=== PATIENT | female | born 1965 | race Caucasian/White ===

== ENCOUNTER 2016-08-18 03:08 | Inpatient (IN) | payer OTHER ==
[~2016-08-18] VITALS: Ht 157.5 cm; Wt 67.1 kg
[~2016-08-18 03:08] MED LIST: FLUOXETINE HCL10 M2 PO
--- NOTE | 2016-08-18 08:54 | Admission Core Measures ---
Admission Lab Results I reviewed the following labs: Laboratory Tests 08/18 621 Urines Urine Test NEGATIVE Admission Meds I reviewed the following Meds: Current Medications Sig/Esther Start time Last Medication Dose Stop Time Status Admin Cefazolin Sodium 2,000 MG ONCE 08/18 0000 NR (Kefzol-Ancef Inj) 08/18 2358 Oxycodone HCl 10 MG ONCE 08/18 0000 NR (Roxicodone) 08/18 2358 Acute Coronary Syndrome Inclusion Criteria ACS Diagnosis No Inpatient Core Measures LDL Reminder: If No, please order W/I first 24hr of stay Congestive Heart Failure Inclusion Criteria CHF Diagnosis No Cerebrovascular accident Inclusion Criteria CVA/TIA Diagnosis No Inpatient Core Measures Bedside Swallow Eval Reminder: If BSE failed, place ST order Antithrombotic Reminder: Order Antithrombotic Medication by end of day 2 Antithrombotic Reminder: Document Reason Antithrombotic Not ordered by end of day 2 AFIB/Flutter Reminder: If Present, add to problem list AFIB/Flutter Reminder: Order Anticoag Medication for pts with AFIB/Flutter Atherosclerosis Reminder: If Present, add to problem list LDL Reminder: If No, please order W/I first 24hr of stay PT Order Reminder: If No, please order Venous thromboembolism Inpatient Core Measures VTE Risk Factors: Age > 40, Surgery No [facility] VTE prophylaxis d/t No contraindications No VTE Pharm Prophylaxis d/t No contraindications Inclusion Criteria - Per Current guidelines, there needs to be overlap - treatment for the first 5 days of Warfarin therapy. - Parenteral Anticoagulation (IV or SC) needs to be - given along with Warfarin therapy. VTE Diagnosis No VTE Type NONE VTE Confirmed by (Test) NONE Problem List As ranked by this Provider includes Assessment & Plan 1. S/P total hip arthroplasty HOME MEDS Home Med List Fluoxetine HCl 10 MG CAPSULE 1 CAP PO DAILY PMS SYNDROME (Reported)
[2016-08-18] MEDS ORDERED: DILAUDID2 M1 PO (09:10)
[2016-08-18] MEDS ORDERED: ASPIRIN325 M2 PO (09:10)
[2016-08-18] MEDS ORDERED: MIRALAX17 G1 PO (09:10)
[2016-08-18] MEDS ORDERED: MS CONTIN15 M2 PO (09:10)
[2016-08-18] MEDS ORDERED: COLACE100 M1 PO (09:10)
--- NOTE | 2016-08-18 09:13 | Patient Discharge Instructions ---
Discharge Instructions General Discharge Information You were seen/treated for: Right hip degenerative joint disease You had these procedures: Right total hip arthroplasty Watch for these problems: Significantly increased pain, difficulty ambulating, or temperature over 101 Increased redness or drainage from incision No bath, but you may shower: Yes Other wound care: Daily dry dressing change Special Instructions: See printed information booklet Diet Continue normal diet: Yes Activity Activity Self Limited: Yes Other activity limits: Ambulate with walker as instructed by physical therapy No driving or operating heavy machinery while until finished taking pain medications and okay with your surgeon Acute Coronary Syndrome Inclusion Criteria At DC or during hospital stay patient has or had the following: ACS DIAGNOSIS No Discharge Core Measures Meds if any: Prescribed or Continued at Discharge Meds if any: NOT Prescribed or Continued at Discharge Congestive Heart Failure Inclusion Criteria At DC or during hospital stay patient has or had the following: CHF DIAGNOSIS No Discharge Core Measures Meds if any: Prescribed or Continued at Discharge Meds if any: NOT Prescribed or Continued at Discharge Cerebrovascular accident Inclusion Criteria At DC or during hospital stay patient has or had the following: CVA/TIA Diagnosis No Discharge Core Measures Meds if any: Prescribed or Continued at Discharge Meds if any: NOT Prescribed or Continued at Discharge Venous thromboembolism Inclusion Criteria VTE Diagnosis No VTE Type NONE VTE Confirmed by (Test) NONE Discharge Core Measures - Per Current guidelines, there needs to be overlap - treatment for the first 5 days of Warfarin therapy. - If discharged on Warfarin prior to 5 days of - overlap therapy, the patient will need to be - assessed for post discharge needs including - *Post discharge parental anticoagulation - *Warfarin and/or parental anticoagulation education - *Follow up date to check INR post discharge At least 5 days overlap therapy as Inpatient No Meds if any: Prescribed or Continued at Discharge Note: Overlap Therapy is Warfarin and Anticoagulant Meds if any: NOT Prescribed or Continued at Discharge
--- NOTE | 2016-08-18 09:16 | Surg Short-stay <48hrs Dis Sum ---
Visit Information Visit Dates Admission Date: 08/18/16 Discharge Date: 08/18/16 Surgical Short Stay DC Summary Admission Diagnosis: Right hip degenerative joint disease Final Diagnosis: Same Procedure(s): Right total hip arthroplasty Summary/Significant Findings: The patient was admitted on 08/18/2016. Later that day she was brought to the operating theater and underwent a right total hip arthroplasty. Postoperative the patient progressed as expected, her pain was under adequate control, and she ambulated safely with physical therapy. The patient voided postoperatively and tolerated diet. She was discharged with an uneventful hospital course. Condition at Discharge: Stable Discharge Disposition: home health services Discharge instructions provided to patient/family: Yes Post discharge follow-up plan: Call the office to be seen in 6 weeks or earlier if needed
--- NOTE | 2016-08-18 12:01 | RADIOLOGY REPORT ---
EXAMINATION: XR HIP, RIGHT CLINICAL INFORMATION: Status post right hip replacement. COMPARISON: None TECHNIQUE: Two views of the right hip. FINDINGS: Hardware from right hip arthroplasty is demonstrated. The prosthetic femoral head is well situated over the acetabular component. On the crosstable lateral view, there is a linear lucency extending over the greater trochanter, which either represents gas within the overlying subcutaneous tissues or possible nondisplaced fracture. Postsurgical changes of 2 changes. IMPRESSION: 1. Small linear lucency overlying the greater trochanter on the crosstable lateral view either represents overlying subcutaneous gas versus nondisplaced fracture. Consider short-term follow-up radiography to differentiate. 2. Postsurgical changes status post right hip arthroplasty.
--- NOTE | 2016-08-18 14:02 | CT SCAN REPORT ---
EXAMINATION: CT LOWER EXTREMITY WITHOUT CONTRAST, RIGHT CLINICAL INFORMATION: Status post right total hip replacement. Rule out fracture. COMPARISON: Radiographs from the same date. TECHNIQUE: Helical multidetector volumetric imaging was obtained through the right hip without contrast. Multiplanar reformatted images in coronal and sagittal orientations were submitted. DLP: 1660 mGy-cm FINDINGS: Prosthetic components of the right total hip arthroplasty are appropriately situated. There is a subtle nondisplaced hairline fracture of the right acetabulum extending cephalad from the region of the high right pubic bone/anterior quadrilateral plate into the right ilium along the medial cortex by the iliopectineal line. No additional fractures are identified in the imaged portion of the right hemipelvis. No periprosthetic fractures are identified at the proximal femur. Linear lucency seen radiographically likely corresponds to overlying gas along the iliopsoas muscle. Postsurgical gas is present around the right hip and thigh musculature including at the iliopsoas, obturator internus, proximal quadriceps muscles, and gluteal musculature. There is haziness of the fascial planes along this anterior approach incision between the tensor fascia joe and rectus femoris. No significant fluid collections are identified. Bladder is distended. Imaged pelvic soft tissues are otherwise unremarkable. IMPRESSION: 1. Subtle, nondisplaced, incomplete periprosthetic hairline fracture at the anteromedial acetabulum extending cephalad along the medial iliac cortex. 2. No periprosthetic femoral fractures. 3. Appropriate alignment of the right total hip prosthesis.
[2016-08-18 16:16] VITALS: BP 120/74
--- NOTE | 2016-08-18 17:00 | PN- Orthopedic ---
Subjective Subjective: POST-OP NOTE: No complaints. Pain controlled. Tolerating diet. No nausea. Seen by PT, and cleared stairs. No dizziness. No shortness of breath. No chest pains. Voided without difficulty. She reports she has a rolling walker at home, but inquiring about services for home. Objective Vital Signs and I&Os Vital Signs Date Time Temp Pulse Resp B/P B/P Pulse O2 O2 Flow FiO2 Mean Ox Delivery Rate 08/18 1616 97.4 69 16 120/74 96 Room Air Physical Exam: General - alert & oriented x 3. out of bed to chair. comfortable. Lungs - clear bilaterally. no w/r/r. Cardiac - s1s2. reg. Abdomen - soft. nontender. Extremities - warm bilaterally. no c/c/e. calves soft and nontender b/l. right hip dressing c/d/i. no hematoma. no drains. nvi. Current Medications: Current Medications Sig/Esther Start time Last Medication Dose Route Stop Time Status Admin Aspirin 325 MG BID 08/18 1000 AC PO Cefazolin Sodium 1,000 MG IQ8 08/18 1600 AC 08/18 IV 08/19 0001 1643 Cefazolin Sodium 2,000 MG ONCE 08/18 0000 DC IV 08/18 2359 Dextrose/Sodium 1,000 ML .[id number] 08/18 1600 AC 08/18 Chloride IV 1643 Docusate Sodium 100 MG DAILY 08/18 1000 AC PO Fentanyl Citrate 100 MCG .STK-MED ONE 08/18 0706 DC IM 08/18 0707 Fluoxetine HCl 10 MG DAILY 08/18 1000 AC PO Hydromorphone HCl 2 MG Q4P PRN 08/18 1600 AC PO Hydromorphone HCl 4 MG Q4P PRN 08/18 1600 AC PO Ketorolac 30 MG Q8P PRN 08/18 1600 AC Tromethamine IM 08/20 0854 Midazolam HCl 5 MG .STK-MED ONE 08/18 0706 DC IM 08/18 0707 Morphine Sulfate 2 MG Q2P PRN 08/18 1600 AC IV Ondansetron HCl 4 MG Q6P PRN 08/18 1600 AC IV Oxycodone HCl 0 .STK-MED ONE 08/18 0712 DC PO Oxycodone HCl 10 MG ONCE 08/18 0000 DC PO 08/18 2359 Polyethylene Glycol 17 GM DAILY 08/18 1000 AC PO Tranexamic Acid 2,000 MG .STK-MED ONE 08/18 0706 DC IV 08/18 0707 Results Last 48 Hours of Labs: Laboratory Tests 08/18 0622 Urines Urine Test NEGATIVE Assessment/Plan Assessment/Plan This 50 year old female is POD#0 s/p right total hip replacement (anterior approach) tolerating diet pain controlled tien-operative ancef asa bid cleared by PT voided without difficulty rn field case manager contacted to get in touch with agency for tomorrow (total care) d/c home will d/w Core Measures/Miscellaneous Venous Thromboembolism VTE Risk Factors: Age > 40, Surgery VTE Contraindications: No Contraindications VTE Diagnosis: No VTE Type: NONE VTE Confirmed by (Test): NONE Beta Sola Is Beta Sola a Home Med? No Antibiotics Is Patient on Antibiotics? Yes If Yes: prophylaxis
--- NOTE | 2016-08-18 17:28 | Operative Report ---
Operative/Inv Procedure Report Surgery Date: 08/18/16 Name of Procedure: Right total hip replacement Pre-Operative Diagnosis: Primary right hip DJD Post-Operative Diagnosis: Same Estimated Blood Loss: 250 Surgeon/Paper Production Engineer: RE CARRENO,YASMIN Wiseman Anesthesia: block Operative/Procedure Note Note: Description of Procedure: The patient was taken to the operating room and positively identified. After induction of spinal anesthesia and administration of appropriate pre-operative antibiotics, the patient was positioned supine on the operating room table and all bony prominences were well padded. After performing a surgical timeout, the right lower extremity was prepped and draped in the usual sterile fashion. A direct anterior approach was made to the right hip. The incision was carried sharply through superficial soft tissues to the level of the fascia. Meticulous hemostasis was maintained with Bovie electocautery. The fascia over the tensor fascia joe muscle was opened sharply and the interval between the TFL and the sartorius was entered bluntly taking care to stay lateral to the lateral femoral cutaneous nerve. Retractors were placed around the femoral neck and the pericapsular fat was identified. The ascending branches of the lateral femoral circumflex vessels were identified and carefully coagulated. The pericapsular fat and anterior capsule were then resected. A napkin ring osteotomy was performed and the femoral head was removed without difficulty. Attention was then turned to the acetabulum. After appropriate placement of retractors, the acetabulum was exposed. Soft tissue was cleaned from the acetabular margin and notch. Overhanging osteophytes were removed and the teardrop was exposed. The acetabulum was then sequentially reamed to accept a 50 mm Justo Tritanium hemispherical solid back shell. This was impacted into place in the appropriate position and fitted with a 32 mm Trident X3 zero degree polyethylene insert. Attention was then turned to the femur. After performing the appropriate ligament releases, the proximal femur was exposed. It was then sequentially broached to accept a size 2 132 Welcome Accolade 2 stem. This was trialed for leg length and stability. The trial component was removed and the final component was impacted into place. The trunnion was carefully cleaned and fit with a 32 mm, +0 Biolox delta ceramic femoral head. The hip was reduced and put through a full range of motion and found to be stable. The articular space was then irrigated with sterile saline. The periarticular soft tissues were infilitrated with Marcaine. The fascial layer was closed with interrupted #1 vicryl suture and the skin was re-approximated with interrupted 2 -0 vicryl. The skin was closed with a running 3-0 V-Lock suture. Steri-strips and a sterile dressing were applied. The patient was awakened and taken to the recovery room in satisfactory condition.
--- NOTE | 2016-08-18 18:30 | NUR ---
Case Mgmnt TSF: I placed a call to [facility]. They do not cover the area where the patient lives. CM continuing to follow.
--- NOTE | 2016-08-18 19:00 | NUR ---
Case Mgmnt TSF: I placed a call to [facility]. I left a message for an oncall nurse to call me back for a referral. Case dylan continuing to follow.
--- NOTE | 2016-08-18 19:08 | NUR ---
PT ARRIVED TO FLOOR AROUND 1600. ALERT AND ORIENTED, AT BEDSIDE. PT AMBULATED WITH PATIENT. VSS. DENIES ANY PAIN. SHAHEEN C/D/I. TEDS GIVEN FOR D/C.
--- NOTE | 2016-08-18 19:20 | NUR ---
Case Mgyanet TSF: I placed another call to [facility] for a call back. Case dylan continuing to follow.
--- NOTE | 2016-08-18 19:35 | NUR ---
Case Andrea TSF: Call back from Breanne at [facility]. She states that they do take patient's insurance and do cover the area where she lives. They will call me back after they make a confirmation. Case andrea continuing to follow.
--- NOTE | 2016-08-18 19:45 | NUR ---
Case Mgmnt TSF: Breanne from [facility] called me back. They will be able to go and open case tomorrow (08/19/16) for patient. I have faxed over all clinical to [phone]. Fax confirmation received back. I paged the surgical Pa Yoav #[phone] and updated him that services would be out to see patient tomorrow. I've also called the floor and updated RN that had patient. Case mgmnt complete.
== END 2016-08-18 18:30 | disposition home health service (06) | DRG 470 ==
LOC: SDA 03:08 → ENRESERV 12:13 → 2NB 15:41
PROVIDERS: ADMIT Orthopaedic Surgery
PROC: 0SR904A Replacement of Right Hip Joint with Ceramic on Polyethylene Synthetic Substitute, Uncemented, Open Approach (ICD-10-PCS; principal; 2016-08-18)
DX: M16.11 Unilateral primary osteoarthritis, right hip (principal); E53.8 Deficiency of other specified B group vitamins; E66.3 Overweight; Z68.27 Body mass index [BMI] 27.0-27.9, adult; E55.9 Vitamin D deficiency, unspecified
CPT/HCPCS: 2NSBP; 73502-RT; 81025; 88304; 97110-GO; 97116-GO; 97161-GP; J0690; J0735; J1885; J2405; J7042